=== PATIENT | female | born 1955 | race Two or more races ===

== ENCOUNTER 2017-12-14 16:25 | Inpatient (IN) | payer OTHER ==
[~2017-12-14] VITALS: Ht 165.1 cm; Wt 65.8 kg
[2017-12-14] MEDS ORDERED: IRON159 MG PO (16:51)
[2017-12-14] MEDS ORDERED: Isovue-300 100ml vial INJ PRN (17:00)
--- NOTE | 2017-12-14 17:17 | Emergency Room Report ---
History of Present Illness General Chief Complaint: General Complaint Source: Patient Present Illness HPI 62-year-old female, presenting with abdominal pain. I spoke with patient as well as her surgeon , patient had an elective cholecystectomy in March. She developed biloma one month later, required surgical drainage, catheter placement, and ERCP with stent. Patient had follow-up visit continues to not feel well. She's been complaining of right upper abdominal pain for the last 4 days. Some nausea and vomiting. No fever no chills no diarrhea. Complains of right upper abdominal pain as well as epigastric pain. Allergies: Coded Allergies: No Known Allergies (Unverified , 12/14/17) Patient History Past Medical History: see triage record Past Surgical History: none Pertinent Family History: none Reviewed Nursing Documentation: PMH: Agreed; PSxH: Agreed Nursing Documentation-PMH Past Medical History: No History, Except For Review of Systems All Other Systems: negative except mentioned in HPI Physical Exam Vital Signs Date Time Temp Pulse Resp B/P (MAP) Pulse Ox O2 Delivery O2 Flow Rate FiO2 12/14/17 16:47 98.2 60 14 101/59 96 Room Air 98.2 Sp02 EP Interpretation: reviewed, normal General Appearance: alert, GCS 15, non-toxic, mild distress Head: normocephalic, atraumatic Eyes: bilateral eye normal inspection, bilateral eye PERRL, bilateral eye EOMI ENT: normal ENT inspection, normal pharynx, normal voice, moist mucus membranes Neck: normal inspection, full range of motion, supple Respiratory: normal inspection, lungs clear, normal breath sounds, no respiratory distress, no retraction, no wheezing, speaking full sentences, chest symmetrical Cardiovascular #1: normal inspection, regular rate, rhythm, normal capillary refill Cardiovascular #2: 2+ radial (R), 2+ radial (L) Gastrointestinal: other - Well-healed surgical scars in the right side of the abdomen, tender in the right upper quadrant, no guarding or rigidity not peritoneal Musculoskeletal: normal inspection, back normal, normal range of motion, non- tender Neurologic: normal inspection, alert, oriented x3, responsive, motor strength/ tone normal, sensory intact, normal gait, speech normal Psychiatric: normal inspection, judgement/insight normal, memory normal Skin: normal inspection, normal color, no rash, warm/dry, well hydrated, normal turgor Medical Decision Making Diagnostic Impression: Primary Impression: Abdominal pain Additional Impression: Intraabdominal fluid collection ER Course 62-year-old female with right-sided abdominal pain. DDX: Rule out intra-abdominal pathology, biloma, intra-abdominal abscess, choledocholithiasis, UTI, pyelonephritis Plan: Obtain labs, ua, EKG, CXR CT Abdo pelvis ER course: Patient has been monitored during ED stay, HD stable Discussed with who is aware the patient is here got abx for UTI as well as possible intraabdominal infection CT showing fluid in abdomen, possibly bile, informed Dr Mittal Disposition: Patient is to be admitted to medicine, Dr Sierra covering for Dr Samson Please note that this Emergency Department Report was dictated using [id number] merchandise manager technology software, occasionally this can lead to erroneous entry secondary to interpretation by the dictation equipment. EKG Diagnostic Results EP Interpretation: Yes Rate: normal Rhythm: NSR ST Segments: T-wave inversion in lead 3 only ASA given to patient: No Rhythm Strip EP Interpretation: Yes Rate: 59 Rhythm: NSR, no PVCs, no ectopy Laboratory Tests Test 12/14/17 17:00 White Blood Count 5.3 K/UL (4.8-10.8) Red Blood Count 3.90 M/UL (4.20-5.40) L Hemoglobin 12.0 G/DL (12.0-16.0) Hematocrit 36.1 % (37.0-47.0) L Mean Corpuscular Volume 92 FL (80-99) Mean Corpuscular Hemoglobin 30.8 PG (27.0-31.0) Mean Corpuscular Hemoglobin Concent 33.4 G/DL (32.0-36.0) Red Cell Distribution Width 13.0 % (11.6-14.8) Platelet Count 261 K/UL (150-450) Mean Platelet Volume 6.8 FL (6.5-10.1) Neutrophils (%) (Auto) 47.0 % (45.0-75.0) Lymphocytes (%) (Auto) 39.7 % (20.0-45.0) Monocytes (%) (Auto) 7.8 % (1.0-10.0) Eosinophils (%) (Auto) 3.8 % (0.0-3.0) H Basophils (%) (Auto) 1.8 % (0.0-2.0) Prothrombin Time 10.2 SEC (9.30-11.50) Prothrombin Time INR 1.0 (0.9-1.1) PTT 26 SEC (23-33) Urine Color Pale yellow Urine Appearance Clear Urine pH 6 (4.5-8.0) Urine Specific [place] 1.020 (1.005-1.035) Urine Protein Negative (NEGATIVE) Urine Glucose (UA) Negative (NEGATIVE) Urine Ketones Negative (NEGATIVE) Urine Blood 2+ (NEGATIVE) H Urine Nitrite Negative (NEGATIVE) Urine Bilirubin Negative (NEGATIVE) Urine Urobilinogen Normal MG/DL (0.0-1.0) Urine Leukocyte Esterase 3+ (NEGATIVE) H Urine RBC 2-4 /HPF (0 - 2) H Urine WBC 5-10 /HPF (0 - 2) H Urine Squamous Epithelial Cells Occasional /LPF Urine Bacteria Occasional /HPF (NONE) Urine Mucus Moderate /LPF (NONE/OCC) H Sodium Level 138 MMOL/L (136-145) Potassium Level 4.0 MMOL/L (3.5-5.1) Chloride Level 104 MMOL/L (98-107) Carbon Dioxide Level 30 MMOL/L (21-32) Anion Gap 4 mmol/L (5-15) L Blood Urea Nitrogen 19 mg/dL (7-18) H Creatinine 0.9 MG/DL (0.55-1.30) Estimate Glomerular Filtration Rate > 60 mL/min (>60) Glucose Level 98 MG/DL (74-106) Lactic Acid Level 0.50 mmol/L (0.4-2.0) Calcium Level 9.5 MG/DL (8.5-10.1) Total Bilirubin 0.5 MG/DL (0.2-1.0) Aspartate Amino Transferase (AST) 45 U/L (15-37) H Alanine Aminotransferase (ALT) 49 U/L (12-78) Alkaline Phosphatase 199 U/L (46-116) H Troponin I 0.000 ng/mL (0.000-0.056) Pro-B-Type Natriuretic Peptide 61 pg/mL (0-125) Total Protein 7.6 G/DL (6.4-8.2) Albumin 3.6 G/DL (3.4-5.0) Globulin 4.0 g/dL Albumin/Globulin Ratio 0.9 (1.0-2.7) L CT/MRI/US Diagnostic Results CT/MRI/US Diagnostic Results : Imaging Test Ordered: CT ABDO PELVIS Impression CT ABDOMEN & PELVIS With Contrast: Comparison: None available Moderate size hiatal hernia. Stomach is nondistended limiting CT gastric evaluation. However, there is fluid identified within hiatal hernia as well as low density/fluid localized adjacent gastric fundus and body of stomach. This is of uncertain etiology and could reflect perigastric collection or less likely low density neoplastic infiltration. Containing gastric perforation would be a possibility although no free air identified. Clinical correlation is recommended. No evidence of bowel obstruction or pneumoperitoneum. Normal-appearing appendix identified in the right lower quadrant pelvis. Surgical clips in region of roger hepatis raising possibility of previous cholecystectomy. However, ovoid low density in region of gallbladder fossa suggests presence of gallbladder without radiopaque gallstones. If the patient has undergone previous cholecystectomy, then this would suggest fluid collection in gallbladder fossa. Correlation with surgical history recommended. Mild intrahepatic biliary dilatation. Pancreas is unremarkable. No evidence of renal calculi or hydronephrosis. Minimal pelvic free fluid. Previous hysterectomy. Last Vital Signs Date Time Temp Pulse Resp B/P (MAP) Pulse Ox O2 Delivery O2 Flow Rate FiO2 12/14/17 16:47 98.2 60 14 101/59 96 Room Air 98.2 Disposition: ADMITTED INPATIENT Condition: Francis Dang M.D. Dec 14, 2017 17:17
[2017-12-14 17:30] VITALS: BP 92/52
[2017-12-14 17:47] LABS: APPEARANCE,URINE CLEAR; BILIRUBIN, URINE NEGATIVE (NEGATIVE); COLOR,URINE PALE YELLOW; GLUCOSE, URINE (UA) NEGATIVE (NEGATIVE); KETONES,URINE NEGATIVE (NEGATIVE); LEUKOCYTE ESTERASE ,URINE 3+ (NEGATIVE); NITRITE,URINE NEGATIVE (NEGATIVE); PH,URINE 6 (4.5-8.0); PROTEIN,URINE NEGATIVE (NEGATIVE); UROBILINOGEN,URINE NORMAL MG/DL (0.0-1.0)
[2017-12-14 17:48] LABS: BASOPHILS % (AUTO) 1.8 % (0.0-2.0); EOSINOPHILS % (AUTO) 3.8 % (0.0-3.0); HEMATOCRIT 36.1 % (37.0-47.0); LYMPHOCYTES % (AUTO) 39.7 % (20.0-45.0); MEAN CORPUSCULAR VOLUME 92 FL (80-99); MONOCYTES % (AUTO) 7.8 % (1.0-10.0); PLATELET COUNT 261 K/UL (150-450); WHITE BLOOD COUNT 5.3 K/UL (4.8-10.8)
[2017-12-14 17:51] LABS: ANION GAP 4 mmol/L (5-15); BLOOD UREA NITROGEN 19 mg/dL (7-18); CALCIUM 9.5 MG/DL (8.5-10.1); CARBON DIOXIDE 30 MMOL/L (21-32); CHLORIDE 104 MMOL/L (98-107); CREATININE 0.9 MG/DL (0.55-1.30); SODIUM 138 MMOL/L (136-145)
[2017-12-14 18:00] LABS: ALANINE AMINOTRANSFERASE 49 U/L (12-78); ALBUMIN 3.6 G/DL (3.4-5.0); ALBUMIN/GLOBULIN RATIO 0.9 (1.0-2.7); ALKALINE PHOSPHATASE 199 U/L (46-116); ASPARTATE AMINO TRANSFERASE 45 U/L (15-37); BILIRUBIN,TOTAL 0.5 MG/DL (0.2-1.0)
[2017-12-14 18:30] VITALS: BP 100/61
[2017-12-14] MEDS ORDERED: Piperacillin/Tazobactam 3.375 GM in NS 110 ML IVPB ONE (18:30)
[2017-12-14 19:41] VITALS: BP 101/59
[2017-12-14 20:00] VITALS: BP 98/55
[2017-12-14] MEDS ORDERED: Mylanta II UD 30ml ORAL PRN (22:30)
[2017-12-14] MEDS ORDERED: Morphine Sulfate 2mg/ml Inj IVP PRN (22:30)
[2017-12-14] MEDS ORDERED: Milk of Magnesia 30ml Ud ORAL PRN (22:30)
[2017-12-14] MEDS ORDERED: Nitroglycerin Subl 0.4mg tab SL PRN (22:30)
[2017-12-14] MEDS ORDERED: LORazepam Inj 2mg/ml 1ml IV PRN (22:30)
[2017-12-14] MEDS ORDERED: D5 1/2NS 1,000 ML IV SCH (22:30)
--- NOTE | 2017-12-14 22:30 | Consultation ---
History of Present Illness General Chief Complaint: General Complaint Present Illness HPI 62 year old female well known to me. Had laparoscopic cholecystectomy earlier this year. Developed large biloma s/p drainage and ERCP w/ stent. Drain was removed a few months back and she was referred for stent removal some time ago. I saw her in the office recently for follow up. She stated that she has not been able to have stent removed yet. She has followed up with all of her scheduled appointments and has seen a GI who did not want to take stent out for her as per patient. In speaking with her and her family, she as been losing weight, abd discomfort at times, and is very concerned about having stent for so long. I expressed the same concerns. subjective fevers and chills intermittently. Has not been able to eat much and is losing weight. decreased appetite. Given these signs and symptoms I recommended her to go to the ED for work up. with her history she is high risk for sepsis, obstruction, cholangitis , etc. She presented to the ED tonight. States that she had one episode of emesis. prior to my visit. labs reviewed / CT reviewed. Allergies: Coded Allergies: No Known Allergies (Unverified , 12/14/17) Medication History Scheduled Ferrous Sulfate, Dried (Iron), Unknown Dose PO DAILY, (Reported) Patient History History Provided By: Patient, Family Member, Medical Record Healthcare decision maker Resuscitation status Full Code Advanced Directive on File Past Medical/Surgical History Past Medical/Surgical History: (1) Sepsis (2) Intraabdominal fluid collection (3) Abdominal pain Review of Systems All Other Systems: negative except mentioned in HPI Physical Exam General Appearance: alert Lines, tubes and drains: peripheral HEENT: mucous membranes moist Neck: normal inspection Respiratory/Chest: lungs clear, normal breath sounds, no respiratory distress, no accessory muscle use Cardiovascular/Chest: normal rate Abdomen: normal bowel sounds, soft, no organomegaly, other Extremities: non-tender Neurologic: alert, oriented x 3 Last 24 Hour Vital Signs Date Time Temp Pulse Resp B/P (MAP) Pulse Ox O2 Delivery O2 Flow Rate FiO2 12/14/17 21:55 Room Air 12/14/17 20:06 98.5 63 16 101/59 97 Room Air 98.5 12/14/17 19:41 98.5 63 16 101/59 97 Room Air 98.5 12/14/17 18:30 68 16 100/61 98 Room Air 12/14/17 17:30 98.2 61 20 92/52 96 Room Air 98.2 12/14/17 16:47 98.2 60 14 101/59 96 Room Air 98.2 Laboratory Tests Test 12/14/17 17:00 White Blood Count 5.3 K/UL (4.8-10.8) Red Blood Count 3.90 M/UL (4.20-5.40) L Hemoglobin 12.0 G/DL (12.0-16.0) Hematocrit 36.1 % (37.0-47.0) L Mean Corpuscular Volume 92 FL (80-99) Mean Corpuscular Hemoglobin 30.8 PG (27.0-31.0) Mean Corpuscular Hemoglobin Concent 33.4 G/DL (32.0-36.0) Red Cell Distribution Width 13.0 % (11.6-14.8) Platelet Count 261 K/UL (150-450) Mean Platelet Volume 6.8 FL (6.5-10.1) Neutrophils (%) (Auto) 47.0 % (45.0-75.0) Lymphocytes (%) (Auto) 39.7 % (20.0-45.0) Monocytes (%) (Auto) 7.8 % (1.0-10.0) Eosinophils (%) (Auto) 3.8 % (0.0-3.0) H Basophils (%) (Auto) 1.8 % (0.0-2.0) Prothrombin Time 10.2 SEC (9.30-11.50) Prothromb Time International Ratio 1.0 (0.9-1.1) Activated Partial Thromboplast Time 26 SEC (23-33) Urine Color Pale yellow Urine Appearance Clear Urine pH 6 (4.5-8.0) Urine Specific [place] 1.020 (1.005-1.035) Urine Protein Negative (NEGATIVE) Urine Glucose (UA) Negative (NEGATIVE) Urine Ketones Negative (NEGATIVE) Urine Blood 2+ (NEGATIVE) H Urine Nitrite Negative (NEGATIVE) Urine Bilirubin Negative (NEGATIVE) Urine Urobilinogen Normal MG/DL (0.0-1.0) Urine Leukocyte Esterase 3+ (NEGATIVE) H Urine RBC 2-4 /HPF (0 - 2) H Urine WBC 5-10 /HPF (0 - 2) H Urine Squamous Epithelial Cells Occasional /LPF Urine Bacteria Occasional /HPF (NONE) Urine Mucus Moderate /LPF (NONE/OCC) H Sodium Level 138 MMOL/L (136-145) Potassium Level 4.0 MMOL/L (3.5-5.1) Chloride Level 104 MMOL/L (98-107) Carbon Dioxide Level 30 MMOL/L (21-32) Anion Gap 4 mmol/L (5-15) L Blood Urea Nitrogen 19 mg/dL (7-18) H Creatinine 0.9 MG/DL (0.55-1.30) Estimat Glomerular Filtration Rate > 60 mL/min (>60) Glucose Level 98 MG/DL (74-106) Lactic Acid Level 0.50 mmol/L (0.4-2.0) Calcium Level 9.5 MG/DL (8.5-10.1) Total Bilirubin 0.5 MG/DL (0.2-1.0) Aspartate Amino Transf (AST/SGOT) 45 U/L (15-37) H Alanine Aminotransferase (ALT/SGPT) 49 U/L (12-78) Alkaline Phosphatase 199 U/L (46-116) H Troponin I 0.000 ng/mL (0.000-0.056) Pro-B-Type Natriuretic Peptide 61 pg/mL (0-125) Total Protein 7.6 G/DL (6.4-8.2) Albumin 3.6 G/DL (3.4-5.0) Globulin 4.0 g/dL Albumin/Globulin Ratio 0.9 (1.0-2.7) L Height (Feet): 5 Height (Inches): 4.00 Weight (Pounds): 145 Medications Current Medications Medications (Trade) Dose Ordered Sig/Petar Route PRN Reason Start Time Stop Time Status Last Admin Dose Admin Iopamidol (Isovue-300 100ml) 100 ml NOW PRN INJ Radiology Procedure 12/14/17 17:00 Assessment/Plan Problem List: (1) Intraabdominal fluid collection ICD Codes: R18.8 - Other ascites SNOMED: 435681319 (2) Abdominal pain ICD Codes: R10.9 - Unspecified abdominal pain SNOMED: 11903239 (3) Sepsis ICD Codes: A41.9 - Sepsis, unspecified organism SNOMED: 17027305 Assessment/Plan UTI / Residual Biloma / abd fluid collection -Trend labs -IV Abx -NPO -IV fluids -Patient Needs ERCP with cholangiogram to ensure no longer leaking from cystic duct stump. discussed with GI thank you Ang Mittal Dec 14, 2017 22:30
[2017-12-15] VITALS (10 sets, daily range): BP systolic 90–119; BP diastolic 45–60
[2017-12-15] MEDS: 1/2NS w/KCl 20mEq 1000ml 1,000 ML IV SCH ×2 (00:09→09:30)
[2017-12-15 06:33] LABS: BASOPHILS % (AUTO) 1.8 % (0.0-2.0); EOSINOPHILS % (AUTO) 4.9 % (0.0-3.0); HEMATOCRIT 36.2 % (37.0-47.0); HEMOGLOBIN 12.2 G/DL (12.0-16.0); LYMPHOCYTES % (AUTO) 43.1 % (20.0-45.0); MEAN CORPUSCULAR VOLUME 90 FL (80-99); MONOCYTES % (AUTO) 9.5 % (1.0-10.0); NEUTROPHILS % (AUTO) 40.6 % (45.0-75.0); PLATELET COUNT 233 K/UL (150-450); RED BLOOD COUNT 4.02 M/UL (4.20-5.40); RED CELL DISTRIBUTION WIDTH 12.7 % (11.6-14.8); WHITE BLOOD COUNT 4.3 K/UL (4.8-10.8)
[2017-12-15 07:05] LABS: ALANINE AMINOTRANSFERASE 42 U/L (12-78); ALBUMIN 3.2 G/DL (3.4-5.0); ALBUMIN/GLOBULIN RATIO 0.9 (1.0-2.7); ALKALINE PHOSPHATASE 171 U/L (46-116); ANION GAP 8 mmol/L (5-15); ASPARTATE AMINO TRANSFERASE 36 U/L (15-37); BILIRUBIN,TOTAL 0.9 MG/DL (0.2-1.0); BLOOD UREA NITROGEN 13 mg/dL (7-18); CALCIUM 8.9 MG/DL (8.5-10.1); CARBON DIOXIDE 26 MMOL/L (21-32); CHLORIDE 108 MMOL/L (98-107); CHOLESTEROL 193 MG/DL (< 200); CREATININE 0.7 MG/DL (0.55-1.30); HDL CHOLESTEROL 59 MG/DL (40-60); POTASSIUM 3.8 MMOL/L (3.5-5.1); SODIUM 142 MMOL/L (136-145); TRIGLYCERIDES 104 MG/DL (30-150)
--- NOTE | 2017-12-15 08:55 | Diagnostic Imaging Report ---
Indication: Abdominal pain Technique: Continuous helical transaxial imaging of the abdomen and pelvis was obtained from the lung bases to the pubic symphysis during intravenous contrast administration. Coronal 2-D reformats were also obtained. Study obtained in a Siemens sensation [address] Automatic Exposure Control was utilized. Total Dose length Product (DLP): 553.[address] Dose Index Volume (CTDIvol): 10.35 mGy Comparison: None Findings: There is a hiatal hernia present. Adjacent to the gastroesophageal junction towards the left side there is a focus of fluid and intra-abdominal fat measuring about 7 x 5 cm on transaxial images and most likely representing a paraesophageal component or hernia. The fat is contiguous with intra-abdominal fat. The presence of fluid suggests the this may be symptomatic and that there may be inflammation. Correlate clinically. There are surgical clips in the gallbladder fossa suggestive of previous cholecystectomy. There is a cystic focus in the gallbladder fossa that could represent a dilated gallbladder remnant, postoperative fluid collection such as a seroma or biloma or choledochocyst. This structure measures 5.7 x 4.2 x 5.5 cm. There is no biliary ductal dilatation of significance identified. The CBD is normal in caliber. Liver and spleen size appear normal. Pancreas, both adrenal glands and kidneys are unremarkable. Appendix is normal. Diverticula noted in the sigmoid colon. No definite diverticulitis appreciated. There is a somewhat globular air filled focus adjacent to the sigmoid colon left lower quadrant. This could be redundant colon or prominent diverticulum. No abscess or evidence of bowel obstruction. Urinary bladder is unremarkable. The uterus is absent and not identified. IMPRESSION: Hiatal hernia with the prominent paraesophageal focus of fat and fluid which appears contiguous with the intra-abdominal contents and is therefore likely a paraesophageal hernia. Fluid indicates there may be inflammation. Correlate clinically. 5.7 x 4.2 x 5.5 cm well-circumscribed cystic focus in the gallbladder fossa demonstrated in the setting of previous cholecystectomy. Considerations include a dilated gallbladder remnant, postoperative seroma versus choledochocyst. Evaluation with ultrasound is recommended. Normal appendix Perisigmoid collection of air and fluid probably a prominent diverticulum measuring about 4.3 x 2.6 cm. Possible this is redundant sigmoid colon. Consider evaluation with colonoscopy or repeat CT with enteric contrast either oral or rectal contrast. Status post hysterectomy. Some variance with the preliminary reading by kirbyrad are noted. The CT scanner at [facility] is accredited by the [employer] and the scans are performed using dose optimization techniques as appropriate to a performed exam including Automatic Exposure control.
[2017-12-15] MEDS ORDERED: Iothalamate Meglumine 60% 30ML INJ ONE ×2 (09:34→10:07)
--- NOTE | 2017-12-15 09:37 | Pre-Procedure Note/Attestation ---
Pre-Procedure Note/Attestation Complete Prior to Procedure Planned Procedure: not applicable Procedure Narrative: ercp Indications for Procedure Pre-Operative Diagnosis: bile leak, cbd stent Attestation I attest that I discussed the nature of the procedure; its benefits; risks and complications; and alternatives (and the risks and benefits of such alternatives ), prior to the procedure, with the patient (or the patient's legal claims representative). I attest that, if there was a reasonable possibility of needing a blood transfusion, the patient (or the patient's legal claims representative) was given the [facility] standardized written summary, pursuant to the Marcus Susan Blood Safety Act ([place] Health and Safety Code # 1645, as amended). I attest that I re-evaluated the patient just prior to the surgery and that there has been no change in the patient's H&P, except as documented below: Elijah Pickering MD Dec 15, 2017 09:37
[2017-12-15] MEDS ORDERED: NS 500ML IVPB ONE (09:55)
--- NOTE | 2017-12-15 09:58 | History and Physical ---
History of Present Illness General Date patient seen: Dec 15, 2017 Time patient seen: 09:57 Reason for Hospitalization: Abdominal pain Present Illness HPI 62 y/o female with pmh of cholecystitis s/p laparoscopic cholecystectomy earlier this year c/b large biloma s/p drainage and ERCP w/ stent who presents with worsening abdomianl pain. Pt had drain removed a few months back and she was referred for stent removal some time ago. Pt seen in office by Dr. Mittal--pt advised to have stent removed by GI. Pt has seen a GI who did not want to take stent out for her as per patient. In speaking with her and her family, she as been losing weight, abd discomfort at times. Pt also with subjective fevers and chills intermittently. Has not been able to eat much and is losing weight. decreased appetite. Per Dr. Mittal, given pt's history pt advised to go to ER given concern for sepsis, obstruction, cholangitis, etc. She presented to the ED tonight. States that she had one episode of emesis. Allergies: Coded Allergies: No Known Allergies (Unverified , 12/14/17) Medication History Scheduled Ferrous Sulfate, Dried (Iron), Unknown Dose PO DAILY, (Reported) Patient History History Provided By: Patient, Family Member, PMD Healthcare decision maker Resuscitation status Full Code Advanced Directive on File Review of Systems Constitutional: Reports: chills, fever, malaise Eye: Reports: no symptoms ENT: Reports: no symptoms Respiratory: Reports: no symptoms Cardiovascular: Reports: no symptoms Gastrointestinal: Reports: abdominal pain, nausea, vomiting Genitourinary: Reports: no symptoms Musculoskeletal: Reports: no symptoms Skin: Reports: no symptoms Psychiatric: Reports: no symptoms Neurological: Reports: no symptoms Endocrine: Reports: unexplained weight loss Hematologic/Lymphatic: Reports: no symptoms Physical Exam Physical Exam Narrative General: alert, cooperative, no distress, appears stated age Head: normocephalic, without obvious abnormality, atraumatic Eyes: conjunctivae/corneas clear. PERRL, EOM's intact Throat: lips, mucosa, and tongue normal. MMM Neck: supple, symmetrical, trachea midline, and no JVD Lungs: clear to auscultation bilaterally Heart: regular rate and rhythm, S1, S2 normal, no murmur, click, rub or gallop Abdomen: soft, +TTP of abd diffusely, non-distended, bowel sounds normal; no masses or organomegaly Extremities: extremities normal, atraumatic, no cyanosis or edema Pulses: 2+ and symmetric Skin: skin color, texture, turgor normal; no rashes or lesions Neurologic: grossly normal, no focal deficits Last 24 Hour Vital Signs Date Time Temp Pulse Resp B/P (MAP) Pulse Ox O2 Delivery O2 Flow Rate FiO2 12/15/17 08:00 98.8 56 20 92/48 (63) 98 98.8 12/15/17 04:00 97.5 53 18 97/54 (68) 95 97.5 12/15/17 01:11 Room Air 12/15/17 00:00 97.9 55 18 95/53 (67) 97 97.9 12/14/17 21:55 Room Air 12/14/17 20:06 98.5 63 16 101/59 97 Room Air 98.5 12/14/17 20:00 97.6 62 18 98/55 (69) 100 97.6 12/14/17 19:41 98.5 63 16 101/59 97 Room Air 98.5 12/14/17 18:30 68 16 100/61 98 Room Air 12/14/17 17:30 98.2 61 20 92/52 96 Room Air 98.2 12/14/17 16:47 98.2 60 14 101/59 96 Room Air 98.2 Intake and Output 12/14/17 12/15/17 19:00 07:00 Intake Total 600 ml Balance 600 ml Intake IV Total 600 ml # Voids 1 3 Laboratory Tests Test 12/14/17 17:00 12/15/17 05:25 White Blood Count 5.3 K/UL (4.8-10.8) 4.3 K/UL (4.8-10.8) L Red Blood Count 3.90 M/UL (4.20-5.40) L 4.02 M/UL (4.20-5.40) L Hemoglobin 12.0 G/DL (12.0-16.0) 12.2 G/DL (12.0-16.0) Hematocrit 36.1 % (37.0-47.0) L 36.2 % (37.0-47.0) L Mean Corpuscular Volume 92 FL (80-99) 90 FL (80-99) Mean Corpuscular Hemoglobin 30.8 PG (27.0-31.0) 30.3 PG (27.0-31.0) Mean Corpuscular Hemoglobin Concent 33.4 G/DL (32.0-36.0) 33.8 G/DL (32.0-36.0) Red Cell Distribution Width 13.0 % (11.6-14.8) 12.7 % (11.6-14.8) Platelet Count 261 K/UL (150-450) 233 K/UL (150-450) Mean Platelet Volume 6.8 FL (6.5-10.1) 7.2 FL (6.5-10.1) Neutrophils (%) (Auto) 47.0 % (45.0-75.0) 40.6 % (45.0-75.0) L Lymphocytes (%) (Auto) 39.7 % (20.0-45.0) 43.1 % (20.0-45.0) Monocytes (%) (Auto) 7.8 % (1.0-10.0) 9.5 % (1.0-10.0) Eosinophils (%) (Auto) 3.8 % (0.0-3.0) H 4.9 % (0.0-3.0) H Basophils (%) (Auto) 1.8 % (0.0-2.0) 1.8 % (0.0-2.0) Prothrombin Time 10.2 SEC (9.30-11.50) Prothromb Time International Ratio 1.0 (0.9-1.1) Activated Partial Thromboplast Time 26 SEC (23-33) Urine Color Pale yellow Urine Appearance Clear Urine pH 6 (4.5-8.0) Urine Specific [place] 1.020 (1.005-1.035) Urine Protein Negative (NEGATIVE) Urine Glucose (UA) Negative (NEGATIVE) Urine Ketones Negative (NEGATIVE) Urine Blood 2+ (NEGATIVE) H Urine Nitrite Negative (NEGATIVE) Urine Bilirubin Negative (NEGATIVE) Urine Urobilinogen Normal MG/DL (0.0-1.0) Urine Leukocyte Esterase 3+ (NEGATIVE) H Urine RBC 2-4 /HPF (0 - 2) H Urine WBC 5-10 /HPF (0 - 2) H Urine Squamous Epithelial Cells Occasional /LPF Urine Bacteria Occasional /HPF (NONE) Urine Mucus Moderate /LPF (NONE/OCC) H Sodium Level 138 MMOL/L (136-145) 142 MMOL/L (136-145) Potassium Level 4.0 MMOL/L (3.5-5.1) 3.8 MMOL/L (3.5-5.1) Chloride Level 104 MMOL/L (98-107) 108 MMOL/L (98-107) H Carbon Dioxide Level 30 MMOL/L (21-32) 26 MMOL/L (21-32) Anion Gap 4 mmol/L (5-15) L 8 mmol/L (5-15) Blood Urea Nitrogen 19 mg/dL (7-18) H 13 mg/dL (7-18) Creatinine 0.9 MG/DL (0.55-1.30) 0.7 MG/DL (0.55-1.30) Estimat Glomerular Filtration Rate > 60 mL/min (>60) > 60 mL/min (>60) Glucose Level 98 MG/DL (74-106) 83 MG/DL (74-106) Lactic Acid Level 0.50 mmol/L (0.4-2.0) Calcium Level 9.5 MG/DL (8.5-10.1) 8.9 MG/DL (8.5-10.1) Total Bilirubin 0.5 MG/DL (0.2-1.0) 0.9 MG/DL (0.2-1.0) Aspartate Amino Transf (AST/SGOT) 45 U/L (15-37) H 36 U/L (15-37) Alanine Aminotransferase (ALT/SGPT) 49 U/L (12-78) 42 U/L (12-78) Alkaline Phosphatase 199 U/L (46-116) H 171 U/L (46-116) H Troponin I 0.000 ng/mL (0.000-0.056) Pro-B-Type Natriuretic Peptide 61 pg/mL (0-125) Total Protein 7.6 G/DL (6.4-8.2) 6.9 G/DL (6.4-8.2) Albumin 3.6 G/DL (3.4-5.0) 3.2 G/DL (3.4-5.0) L Globulin 4.0 g/dL 3.7 g/dL Albumin/Globulin Ratio 0.9 (1.0-2.7) L 0.9 (1.0-2.7) L Triglycerides Level 104 MG/DL (30-150) Cholesterol Level 193 MG/DL (< 200) LDL Cholesterol 117 mg/dL (<100) H HDL Cholesterol 59 MG/DL (40-60) Cholesterol/HDL Ratio 3.3 (3.3-4.4) Height (Feet): 5 Height (Inches): 5.00 Weight (Pounds): 145 Medications Current Medications Medications (Trade) Dose Ordered Sig/Petar Route PRN Reason Start Time Stop Time Status Last Admin Dose Admin Acetaminophen (Tylenol) 650 mg Q6H PRN ORAL Mild Pain/Temp > 100.5 12/14/17 22:30 01/13/18 22:29 Al Hydroxide/Mg Hydroxide (Mylanta II) 30 ml Q6H PRN ORAL dyspepsia 12/14/17 22:30 01/13/18 22:29 Dextrose (Dextrose 50%) 25 ml Q1H PRN IV Hypoglycemia 12/14/17 22:30 Dextrose (Dextrose 50%) 50 ml Q1H PRN IV Hypoglycemia 12/14/17 22:30 Diphenhydramine HCl (Benadryl) 25 mg Q6H PRN ORAL Itching/Pruritis 12/14/17 22:30 01/13/18 22:29 Iopamidol (Isovue-300 100ml) 100 ml NOW PRN INJ Radiology Procedure 12/14/17 17:00 Lorazepam (Ativan 2mg/ml 1ml) 0.5 mg Q4H PRN IV For Anxiety 12/14/17 22:30 12/21/17 22:29 Magnesium Hydroxide (Mom) 30 ml HSPRN PRN ORAL Constipation 12/14/17 22:30 01/13/18 22:29 Morphine Sulfate (Morphine Sulfate) 2 mg Q3H PRN IVP For Pain 12/14/17 22:30 12/21/17 22:29 Nitroglycerin (Ntg) 0.4 mg Q5M X 3 DOSES PRN SL Prn Chest Pain 12/14/17 22:30 01/13/18 22:29 Ondansetron HCl (Zofran) 4 mg Q6H PRN IVP Nausea & Vomiting 12/14/17 22:30 01/13/18 22:29 Sodium 1,000 ml @ 100 mls/hr Q10H IV 12/14/17 23:30 01/13/18 23:29 12/15/17 00:09 Temazepam (Restoril) 15 mg HSPRN PRN ORAL Insomnia 12/14/17 22:30 12/21/17 22:29 Assessment/Plan Status: stable Assessment/Plan (1) Intraabdominal fluid collection (2) Abdominal pain (3) Sepsis (4) UTI (4) Residual Biloma Admit inpt Surgery and GI consulted CT a/p reviewed and w/ concern for possible fluid collection Empiric IV zosyn for intraabdominal coverage and for likely UTI NPO IVFs Plan for likely ERCP with cholangiogram to ensure no longer leaking from cystic duct stump Pain control, bowel regimen Supportive care DVT Prophylaxis: SCD Code Status: Full Hospital Classification Declaration: Based on this initial evaluation, and depending on the patient's clinical course, I anticipate that this patient will require hospitalization for 1-2 days for IV abx, ERCP, and close respiratory/ hemodynamic monitoring. Disposition: Once the patient is stable to leave the hospital, I anticipate the patient will likely be discharged to the following environment: home with HH vs SNF I spent 70 minutes on this patient's case, and 36 minutes were dedicated to counseling and/or care coordination. Discussed with patient/family, nursing staff, SW/CM, surgery regarding clinical status, treatment course, and disposition planning. Time of note may not reflect time of encounter. Edmar Lim M.D. Dec 15, 2017 09:58
[2017-12-15] MEDS ORDERED: LR 1000ml ONE (10:00)
[2017-12-15] MEDS ORDERED: Propofol 200mg/20ml IV ONE (10:00)
[2017-12-15] MEDS ORDERED: fentaNYL 100 mcg/2 mL IV ONE (10:00)
--- NOTE | 2017-12-15 10:19 | Endoscopy Procedure Note ---
Endoscopy Procedure Note General Indication for Procedure: biliary stent Procedures Performed: ERCP Operative Findings/Diagnosis: no stent, no bile leak Specimen: none Pt Tolerated Procedure Well: Yes Estimated Blood Loss: none Anesthesia Anesthesiologist: kelvin Anesthesia: MAC Inserted Devices Implant(s) used?: No GI Core Measures 50 yrs or older w/o bx or poly: Not Applicable 10yrs. F/U not recommended: Not Applicable Elijah Pickering MD Dec 15, 2017 10:19
--- NOTE | 2017-12-15 10:32 | Anethesia Preoperative Eval ---
Anesthesia Pre-op PMH/ROS General Date of Evaluation: Dec 15, 2017 Time of Evaluation: 10:00 Anesthesiologist: marilu ASA Score: ASA 2 Mallampati Score Class I : Soft palate, uvula, fauces, pillars visible Class II: Soft palate, uvula, fauces visible Class III: Soft palate, base of uvula visible Class IV: Only hard plate visible Mallampati Classification: Class II Surgeon: [email or web address] Diagnosis: sepsis Surgical Procedure: ERCP Anesthesia History: none Family History: no anesthesia problems Allergies: Coded Allergies: No Known Allergies (Unverified , 12/14/17) Medications: see eMAR Past Medical History Cardiovascular: Denies: HTN, CAD, OR, valve dz, arrhythmia, other Pulmonary: Denies: asthma, COPD, SANTY, other Gastrointestinal/Genitourinary: Denies: GERD, CRI, ESRD, other Neurologic/Psychiatric: Denies: dementia, CVA, depression/anxiety, TIA, other Endocrine: Denies: DM, hypothyroidism, steroids, other HEENT: Denies: cataract (L), cataract (R), glaucoma, [place] (L), [place] (R), other Hematology/Immune: Denies: anemia, DVT, bleeding disorder, other Musculoskeletal/Integumentary: Denies: OA, RA, DJD, DDD, edema, other Other: other - sepsis; s/p lap cholecystecomy PSxH Narrative: s/p cholecystecomy Anesthesia Pre-op Phys. Exam Physician Exam Last Vital Signs Date Time Temp Pulse Resp B/P (MAP) Pulse Ox O2 Delivery O2 Flow Rate FiO2 12/15/17 10:25 97.3 63 18 119/45 97 Nasal Cannula 3 97.3 Constitutional: NAD Neurologic: CN 2-12 intact Cardiovascular: RRR Respiratory: CTA Gastrointestinal: S/NT/ND Airway Exam Mallampati Classification 2 Mallampati Score: Class II Neck: normal TMD: 2fb ROM: full Dentures: no upper, no lower Anesthesia Pre-op A/P Labs Hematology Test 12/14/17 17:00 12/15/17 05:25 White Blood Count 5.3 K/UL (4.8-10.8) 4.3 K/UL (4.8-10.8) L Red Blood Count 3.90 M/UL (4.20-5.40) L 4.02 M/UL (4.20-5.40) L Hemoglobin 12.0 G/DL (12.0-16.0) 12.2 G/DL (12.0-16.0) Hematocrit 36.1 % (37.0-47.0) L 36.2 % (37.0-47.0) L Mean Corpuscular Volume 92 FL (80-99) 90 FL (80-99) Mean Corpuscular Hemoglobin 30.8 PG (27.0-31.0) 30.3 PG (27.0-31.0) Mean Corpuscular Hemoglobin Concent 33.4 G/DL (32.0-36.0) 33.8 G/DL (32.0-36.0) Red Cell Distribution Width 13.0 % (11.6-14.8) 12.7 % (11.6-14.8) Platelet Count 261 K/UL (150-450) 233 K/UL (150-450) Mean Platelet Volume 6.8 FL (6.5-10.1) 7.2 FL (6.5-10.1) Neutrophils (%) (Auto) 47.0 % (45.0-75.0) 40.6 % (45.0-75.0) L Lymphocytes (%) (Auto) 39.7 % (20.0-45.0) 43.1 % (20.0-45.0) Monocytes (%) (Auto) 7.8 % (1.0-10.0) 9.5 % (1.0-10.0) Eosinophils (%) (Auto) 3.8 % (0.0-3.0) H 4.9 % (0.0-3.0) H Basophils (%) (Auto) 1.8 % (0.0-2.0) 1.8 % (0.0-2.0) Coagulation Test 12/14/17 17:00 Prothrombin Time 10.2 SEC (9.30-11.50) Prothromb Time International Ratio 1.0 (0.9-1.1) Activated Partial Thromboplast Time 26 SEC (23-33) Chemistry Test 12/14/17 17:00 12/15/17 05:25 Sodium Level 138 MMOL/L (136-145) 142 MMOL/L (136-145) Potassium Level 4.0 MMOL/L (3.5-5.1) 3.8 MMOL/L (3.5-5.1) Chloride Level 104 MMOL/L (98-107) 108 MMOL/L (98-107) H Carbon Dioxide Level 30 MMOL/L (21-32) 26 MMOL/L (21-32) Anion Gap 4 mmol/L (5-15) L 8 mmol/L (5-15) Blood Urea Nitrogen 19 mg/dL (7-18) H 13 mg/dL (7-18) Creatinine 0.9 MG/DL (0.55-1.30) 0.7 MG/DL (0.55-1.30) Estimat Glomerular Filtration Rate > 60 mL/min (>60) > 60 mL/min (>60) Glucose Level 98 MG/DL (74-106) 83 MG/DL (74-106) Lactic Acid Level 0.50 mmol/L (0.4-2.0) Calcium Level 9.5 MG/DL (8.5-10.1) 8.9 MG/DL (8.5-10.1) Total Bilirubin 0.5 MG/DL (0.2-1.0) 0.9 MG/DL (0.2-1.0) Aspartate Amino Transf (AST/SGOT) 45 U/L (15-37) H 36 U/L (15-37) Alanine Aminotransferase (ALT/SGPT) 49 U/L (12-78) 42 U/L (12-78) Alkaline Phosphatase 199 U/L (46-116) H 171 U/L (46-116) H Troponin I 0.000 ng/mL (0.000-0.056) Pro-B-Type Natriuretic Peptide 61 pg/mL (0-125) Total Protein 7.6 G/DL (6.4-8.2) 6.9 G/DL (6.4-8.2) Albumin 3.6 G/DL (3.4-5.0) 3.2 G/DL (3.4-5.0) L Globulin 4.0 g/dL 3.7 g/dL Albumin/Globulin Ratio 0.9 (1.0-2.7) L 0.9 (1.0-2.7) L Triglycerides Level 104 MG/DL (30-150) Cholesterol Level 193 MG/DL (< 200) LDL Cholesterol 117 mg/dL (<100) H HDL Cholesterol 59 MG/DL (40-60) Cholesterol/HDL Ratio 3.3 (3.3-4.4) Studies Pre-op Studies: EKG - sr Risk Assessment & Plan Plan: mac Status Change Before Surgery: No Pre-Antibiotics Drug: Falguni Hinkle CRNA Dec 15, 2017 10:32
--- NOTE | 2017-12-15 10:34 | Immediate Post-Op Evaluation ---
Immediate Post-Op Evalulation Immediate Post-Op Evalulation Procedure: ERCP Date of Evaluation: Dec 15, 2017 Time of Evaluation: 10:25 IV Fluids: 300 Blood Pressure Systolic: 120 Blood Pressure Diastolic: 80 Pulse Rate: 68 Respiratory Rate: 14 O2 Sat by Pulse Oximetry: 100 Pain Score (1-10): 0 Nausea: No Vomiting: No Complications none Patient Status: awake, reacts, patent Hydration Status: adequate Drug: Falguni Hinkle CRNA Dec 15, 2017 10:34
--- NOTE | 2017-12-15 10:46 | Diagnostic Imaging Report ---
Indication: Dyspnea Comparison: None A single view chest radiograph was obtained. Findings: No definite infiltrate or pulmonary vascular congestion identified. Hiatal hernia noted. The heart is normal in size. The aorta is mildly enlarged consistent with atherosclerotic vascular disease. The bones are osteopenic. Impression: No acute disease
--- NOTE | 2017-12-15 10:49 | 48 Hour Post Anesthesia Eval ---
Post Anesthesia Evaluation Procedure: ERCP Date of Evaluation: Dec 15, 2017 Time of Evaluation: 10:48 Blood Pressure Systolic: 119 0: 45 Pulse Rate: 74 O2 Sat by Pulse Oximetry: 100 Airway: patent Nausea: No Vomiting: No Hydration Status: adequate Cardiopulmonary Status: stable Mental Status/LOC: patient returned to baseline Follow-up Care/Observations: na Post-Anesthesia Complications: none Follow-up care needed: N/A Falguni Logan CRNA Dec 15, 2017 10:49
[2017-12-15] MEDS ORDERED: Piperacillin/Tazobactam 3.375 GM in D5W 110 ML IVPB SCH (11:30)
--- NOTE | 2017-12-15 13:04 | Diagnostic Imaging Report ---
Indication: Abdominal pain. ERCP. Findings: Fluoroscopically captured images of the right upper quadrant of the abdomen demonstrate an endoscope with cannulation of the common bile duct and injection of contrast material. CBD appears normal caliber. Extraction balloon deployed and swept through the CBD. Cholecystectomy clips are noted. Pancreatic duct not demonstrated. Impression: ERCP as above
--- NOTE | 2017-12-15 13:57 | General Surgery Progress Note ---
General Surgery-Progress Note Subjective Additional Comments no acute events. CT reviewed. ERCP noted. Objective Last 24 Hour Vital Signs Date Time Temp Pulse Resp B/P (MAP) Pulse Ox O2 Delivery O2 Flow Rate FiO2 12/15/17 12:00 97.7 53 20 105/48 (67) 100 97.7 12/15/17 10:52 97.8 51 18 94/51 97 Room Air 97.8 12/15/17 10:49 74 100 12/15/17 10:45 54 15 100/55 97 Room Air 12/15/17 10:35 56 15 90/52 97 Room Air 12/15/17 10:34 68 14 100 12/15/17 10:30 57 15 90/50 97 Room Air 12/15/17 10:25 97.3 63 18 119/45 97 Nasal Cannula 3 97.3 12/15/17 09:00 Room Air 12/15/17 08:00 98.8 56 20 92/48 (63) 98 98.8 12/15/17 04:00 97.5 53 18 97/54 (68) 95 97.5 12/15/17 01:11 Room Air 12/15/17 00:00 97.9 55 18 95/53 (67) 97 97.9 12/14/17 21:55 Room Air 12/14/17 20:06 98.5 63 16 101/59 97 Room Air 98.5 12/14/17 20:00 97.6 62 18 98/55 (69) 100 97.6 12/14/17 19:41 98.5 63 16 101/59 97 Room Air 98.5 12/14/17 18:30 68 16 100/61 98 Room Air 12/14/17 17:30 98.2 61 20 92/52 96 Room Air 98.2 12/14/17 16:47 98.2 60 14 101/59 96 Room Air 98.2 I&O Intake and Output 12/14/17 12/15/17 19:00 07:00 Intake Total 600 ml Balance 600 ml Intake IV Total 600 ml # Voids 1 3 Drains: none Cardiovascular: RSR Respiratory: clear Abdomen: soft, flat, non-tender, present bowel sounds Extremities: no edema, no tenderness, no cyanosis Laboratory Tests Test 12/14/17 17:00 12/15/17 05:25 White Blood Count 5.3 K/UL (4.8-10.8) 4.3 K/UL (4.8-10.8) L Red Blood Count 3.90 M/UL (4.20-5.40) L 4.02 M/UL (4.20-5.40) L Hemoglobin 12.0 G/DL (12.0-16.0) 12.2 G/DL (12.0-16.0) Hematocrit 36.1 % (37.0-47.0) L 36.2 % (37.0-47.0) L Mean Corpuscular Volume 92 FL (80-99) 90 FL (80-99) Mean Corpuscular Hemoglobin 30.8 PG (27.0-31.0) 30.3 PG (27.0-31.0) Mean Corpuscular Hemoglobin Concent 33.4 G/DL (32.0-36.0) 33.8 G/DL (32.0-36.0) Red Cell Distribution Width 13.0 % (11.6-14.8) 12.7 % (11.6-14.8) Platelet Count 261 K/UL (150-450) 233 K/UL (150-450) Mean Platelet Volume 6.8 FL (6.5-10.1) 7.2 FL (6.5-10.1) Neutrophils (%) (Auto) 47.0 % (45.0-75.0) 40.6 % (45.0-75.0) L Lymphocytes (%) (Auto) 39.7 % (20.0-45.0) 43.1 % (20.0-45.0) Monocytes (%) (Auto) 7.8 % (1.0-10.0) 9.5 % (1.0-10.0) Eosinophils (%) (Auto) 3.8 % (0.0-3.0) H 4.9 % (0.0-3.0) H Basophils (%) (Auto) 1.8 % (0.0-2.0) 1.8 % (0.0-2.0) Prothrombin Time 10.2 SEC (9.30-11.50) Prothromb Time International Ratio 1.0 (0.9-1.1) Activated Partial Thromboplast Time 26 SEC (23-33) Urine Color Pale yellow Urine Appearance Clear Urine pH 6 (4.5-8.0) Urine Specific [place] 1.020 (1.005-1.035) Urine Protein Negative (NEGATIVE) Urine Glucose (UA) Negative (NEGATIVE) Urine Ketones Negative (NEGATIVE) Urine Blood 2+ (NEGATIVE) H Urine Nitrite Negative (NEGATIVE) Urine Bilirubin Negative (NEGATIVE) Urine Urobilinogen Normal MG/DL (0.0-1.0) Urine Leukocyte Esterase 3+ (NEGATIVE) H Urine RBC 2-4 /HPF (0 - 2) H Urine WBC 5-10 /HPF (0 - 2) H Urine Squamous Epithelial Cells Occasional /LPF Urine Bacteria Occasional /HPF (NONE) Urine Mucus Moderate /LPF (NONE/OCC) H Sodium Level 138 MMOL/L (136-145) 142 MMOL/L (136-145) Potassium Level 4.0 MMOL/L (3.5-5.1) 3.8 MMOL/L (3.5-5.1) Chloride Level 104 MMOL/L (98-107) 108 MMOL/L (98-107) H Carbon Dioxide Level 30 MMOL/L (21-32) 26 MMOL/L (21-32) Anion Gap 4 mmol/L (5-15) L 8 mmol/L (5-15) Blood Urea Nitrogen 19 mg/dL (7-18) H 13 mg/dL (7-18) Creatinine 0.9 MG/DL (0.55-1.30) 0.7 MG/DL (0.55-1.30) Estimat Glomerular Filtration Rate > 60 mL/min (>60) > 60 mL/min (>60) Glucose Level 98 MG/DL (74-106) 83 MG/DL (74-106) Lactic Acid Level 0.50 mmol/L (0.4-2.0) Calcium Level 9.5 MG/DL (8.5-10.1) 8.9 MG/DL (8.5-10.1) Total Bilirubin 0.5 MG/DL (0.2-1.0) 0.9 MG/DL (0.2-1.0) Aspartate Amino Transf (AST/SGOT) 45 U/L (15-37) H 36 U/L (15-37) Alanine Aminotransferase (ALT/SGPT) 49 U/L (12-78) 42 U/L (12-78) Alkaline Phosphatase 199 U/L (46-116) H 171 U/L (46-116) H Troponin I 0.000 ng/mL (0.000-0.056) Pro-B-Type Natriuretic Peptide 61 pg/mL (0-125) Total Protein 7.6 G/DL (6.4-8.2) 6.9 G/DL (6.4-8.2) Albumin 3.6 G/DL (3.4-5.0) 3.2 G/DL (3.4-5.0) L Globulin 4.0 g/dL 3.7 g/dL Albumin/Globulin Ratio 0.9 (1.0-2.7) L 0.9 (1.0-2.7) L Triglycerides Level 104 MG/DL (30-150) Cholesterol Level 193 MG/DL (< 200) LDL Cholesterol 117 mg/dL (<100) H HDL Cholesterol 59 MG/DL (40-60) Cholesterol/HDL Ratio 3.3 (3.3-4.4) Plan Problems: (1) Intraabdominal fluid collection Assessment & Plan: evaluated CT scan with radiologist. what was believed to be fluid collection on night read more likely abdominal omental fat contents in known hiatal hernia. fluid collection around gallbladder fossa is stable over the past year and is biloma. ERCP ensured no stent as patient likely passed it. CBD normal. no leak noted. UTI likely etiology of patients symptoms. given Abx labs reviewed discussed findings with patient. discussed care plan with patient d/c home f/u in 2 weeks thank you (2) Abdominal pain (3) Sepsis Ang Mittal Dec 15, 2017 13:57
--- NOTE | 2017-12-15 15:13 | Cardiology Report ---
APPROVED REPORT EKG Measurement Heart [id number] Sinus bradycardia Nonspecific intraventricular conduction delay Borderline ECG
[2017-12-15] MEDS ORDERED: Tubing IV Secondary IV ONE (17:49)
--- NOTE | 2017-12-15 19:30 | Procedure Note ---
DATE OF PROCEDURE: 12/15/2017 SURGEON: Elijah Pickering M.D. PROCEDURE: Endoscopic retrograde cholangiopancreatography with sweeping the duct multiple times. INDICATION: 1. History of bile leak. 2. History of stent. REASON FOR PROCEDURE: The procedure, risks, benefits, and possible consequences, including hemorrhage, aspiration, perforation and infection, and alternative treatments, were explained to the patient/legal guardian by Dr. Elijah Pickering and the patient/legal guardian understood and accepted these risks. DESCRIPTION OF PROCEDURE: After informed consent was obtained and the patient was adequately sedated, ERCP scope was advanced from mouth into the second portion of duodenum. There was no stent seen in the common bile duct. Most probably, stent already fell off and it is gone. Using a balloon, we cannulated common bile duct. This performed a balloon occlusion cholangiogram. There was no obvious leak from the cystic duct stump. The duct measured roughly about maybe 6 to 7 mm. We swept the duct multiple times and we made sure under pressure that there was no bile leak and there was none. So at this time, the procedure was terminated. SUMMARY FINDINGS: Post cholecystectomy with no leak from the cystic duct stump, no stent, and no stone. RECOMMENDATIONS: Advance diet. Discharge planning per primary team. Elijah Pickering M.D. DR: SELVIN JOB#: [id number] CC:
--- NOTE | 2017-12-18 09:56 | Discharge Summary ---
Discharge Summary Discharge Summary _ DATE OF ADMISSION: 12/14/2017 DATE OF DISCHARGE: 12/15/2017 REASON FOR ADMISSION: 63 years old female with past medical history of cholecystitis, status post laparoscopic cholecystectomy earlier this year, complicated by large biloma, status post drainage and ERCP with a stent, presented with worsening abdominal pain. Patient had drain removed few months ago . Patient was seen by surgeon who advised to have stent removed by GI specialist. Upon evaluation vital signs were stable. Laboratory workup revealed no leukocytosis, stable hemoglobin and hematocrit. Urinalysis with evidence of pyuria, possible UTI. Lactic acid 0.5 AST 45 Troponin negative . Electrolytes and renal parameters stable. e Chest x-ray revealed no acute cardiopulmonary disease. CT of the abdomen and pelvis revealed intra-abdominal fluid collection with a prominent diverticulum. Patient admitted with diagnoses of abdominal pain, intra-abdominal fluid collection, possible sepsis ,possible UTI ,residual biloma. CONSULTANTS: GI specialist surgery Dr. Mittal [facility] COURSE: Patient admitted. Patient initially was kept nothing by mouth and started on V fluids. GI and surgery consult requested. Patient started on empiric antibiotic. GI specialist seen and evaluated patient . Subsequently patient undergone on 12/15 ERCP which revealed normal caliber of common bile duct. Cholecystectomy clips noted. Pancreatic duct was not demonstrated. No leak from the cystic duct stump, no stent, no stone. Patient started on diet and advanced as tolerated. A GI recommended to proceed with discharge planning. Patient was able to tolerate diet, no nausea no vomiting. Pain management was addressed. Pain was controlled and subsequently resolved, Bowel regimen instituted. Supportive care provided. DVT prophylaxis provided. Blood culture were negative. Surgeon discussed the findings on ERCP with the patient and recommended to follow-up in 2 weeks. Due to rapid and unexpected improvement in patient's condition, the patient was discharged in one day FINAL DIAGNOSES: Intra-abdominal fluid collection Abdominal pain Possible sepsis Possible UTI Residual biloma DISCHARGE MEDICATIONS: See Medication Reconciliation list. DISCHARGE INSTRUCTIONS: Patient was discharged home Follow up with surgeon in 2 weeks as advised. Follow up with primary care provider in one week. I have been assigned to dictate discharge summary for this account. I was not involved in the patient's management. Jenae Rodrigues NP Dec 18, 2017 09:56
== END 2017-12-15 17:50 | disposition home or self-care (01) | DRG 720 ==
LOC: EMR 17:33 → 4E 17:42 → EDBEDREQSVC 17:56 → EDBEDREQ 17:57 → 4E 20:58
PROC: 0F798ZZ Dilation of Common Bile Duct, Via Natural or Artificial Opening Endoscopic (ICD-10-PCS; principal; 2017-12-15 10:07)
DX: A41.9 Sepsis, unspecified organism (principal); R18.8 Other ascites; R10.9 Unspecified abdominal pain; N39.0 Urinary tract infection, site not specified; K91.89 Other postprocedural complications and disorders of digestive system; Y83.8 Other surgical procedures as the cause of abnormal reaction of the patient, or of later complication, without mention of misadventure at the time of the procedure; Z90.49 Acquired absence of other specified parts of digestive tract
CPT/HCPCS: 36415; 71045; 74177; 74328; 76000; 80053; 80061; 81003; 83605; 83880; 84484; 85025; 85610; 85730; 87040; 93005; 94003; 94150; 96361; 96365; 99285